=== PATIENT | male | born 1990 | race Caucasian/White ===

== ENCOUNTER → 2020-09-18 16:22 | Outpatient (CLI) | payer BC, SELFPAY | PROVIDERS: PCP Internal Medicine Adolescent Medicine; Visit Provider Internal Medicine Adolescent Medicine | DX: Z03.818 Encounter for observation for suspected exposure to other biological agents ruled out (principal); R05 Cough | CPT/HCPCS: U0003 ==

== ENCOUNTER 2022-04-05 12:41 | Emergency (ER) | payer BC, SELFPAY ==
[2022-04-05 12:50] VITALS: BP 139/87; PULSE 70; RESP 19; TEMP 36.7; O2SAT 97; BMI 26.0
[2022-04-05 13:07] LABS: Adenovirus,PCR Not Detected (NotDetected); Coronavirus 229E Not Detected (NotDetected); Coronavirus NL63 Not Detected (NotDetected); Coronavirus OC43 Not Detected (NotDetected); Coronovirus HKU1,PCR Not Detected (NotDetected); Human Metapneumovirus Not Detected (NotDetected); Rhinovirus/Enterovirus Not Detected (NotDetected)
[2022-04-05 13:08] LABS: Bordetella Pertussis Not Detected (NotDetected); Chlamydophila Pneumoniae, PCR Not Detected (NotDetected); Coronavirus 19, PCR Not Detected (NotDetected); Influenza A, PCR Not Detected (NotDetected); Influenza AH1, 2009 Not Detected (NotDetected); Influenza AH1, PCR Not Detected (NotDetected); Influenza AH3,PCR Not Detected (NotDetected); Influenza B, PCR Not Detected (NotDetected); Mycoplasma Pneumoniae, PCR Not Detected (NotDetected); Parainfluenza 1, PCR Not Detected (NotDetected); Parainfluenza 2, PCR Not Detected (NotDetected); Parainfluenza 4, PCR Not Detected (NotDetected); Respiratory Syncytial Virus Not Detected (NotDetected)
--- NOTE | 2022-04-05 13:08 | HMH.EDUTC ---
[facility] [place] Dis[place] Clinical Impression: Bronchitis Sinusitis Qualifiers: Sinusitis location: unspecified location Chronicity: unspecified Qualified Code(s): J32.9 - Chronic sinusitis, unspecified Disposition: Home, Self-Care Condition on Discharge: Good Instructions: Sinusitis, DI for Sinusitis, DI for Acute Bronchitis Additional Instructions: ? Start antibiotic today. Be sure to complete entire prescription even if feeling better ? Monitor temp. Tylenol every 4 hours as needed and / or ibuprofen every 6 hours as needed ( As long as your primary care physician has told you that it ok to take both. For fever/aches/pains ER if no less than 101 despite Tylenol or Motrin ? Humidifier/vaporizer or hot steamy shower ? Inhaler every 4-6 hours as needed like we discussed. If unsure how to use it, ask pharmacist to demonstrate how. Should help open airways and improve cough, wheezing, and shortness of breath *Start steroid tomorrow. Helps with inflammation therefore, cough and wheezing. Follow directions on the package. Reviewed side effects. Patient reports taking them before. Follow up IMMEDIATELY for new or worsening of symptoms OR no noticeable improvement over the next 48-72 hours. 911 immediately for any life threatening symptoms such as chest pain or difficulty breathing Prescriptions: Albuterol Sulfate [Proventil-HFA 90mcg/puff Inh] 1 - 2 puffs IH Q6HP PRN #1 each PRN Reason: Shortness Of Breath Transmission Status: Received by [facility] Brompheniramine/Pseudoephed/Dm [Bromfed Dm Cough Syrup] 10 ml PO Q4-6H PRN #200 ml PRN Reason: Cough Transmission Status: Received by [id number] methylPREDNISolone [Medrol 4mg tab] 4 mg PO DIRECTED #21 tab Transmission Status: Received by [id number] Azithromycin [Z-Calvin 250mg Tab] 250 mg PO DIRECTED #6 tab Transmission Status: Received by [id number] Referrals: Harry Bach MD [Primary Care Provider] - As needed Forms: Work/School Release Medical Decision Making - Cali Inquiry Pt receiving controlled substance: No Cali was queried for this patient: No Vital Signs: 04/05/22 12:50 04/05/22 13:36 Temperature 98.0 F 98.0 F Temperature Source Oral Pulse Rate 70 Pulse Rate [Right Brachial] 70 Respiratory Rate 19 19 Blood Pressure 139/87 Blood Pressure [Right Arm] 139/87 Blood Pressure Mean [Right Arm] 104 Blood Pressure Source [Right Arm] Automatic Cuff Blood Pressure Position [Right Arm] Sitting 02 Sat by Pulse Oximetry 97 Oxygen Delivery Method Room Air Orders (Tests/Meds): ED MEDICATIONS Discontinued Medications Generic Name Dose Route Start Last Admin Trade Name Freq PRN Reason Stop Dose Admin Ceftriaxone Sodium 1 gm 04/05/22 13:19 04/05/22 13:35 Ceftriaxone 1gm Vial IM 04/05/22 13:20 1 gm ONCE ONE Administration Lidocaine HCl 0 ml 04/05/22 13:19 04/05/22 13:35 Lidocaine 1% 5ml Pf Vial IM 04/05/22 13:20 2 ml ONCE ONE Administration Methylprednisolone Sodium Succinate 125 mg 04/05/22 13:19 04/05/22 13:35 Methylprednisolone Sod Succ 125mg Vial IM 04/05/22 13:20 125 mg ONCE ONE Administration ORDERS Category Date Time Status Full Resp Panel w/COVID ([facility]) Routine Lab 04/05/22 13:05 Received [facility] [place] HPI - General Stated complaint: cough, congestion, sinus drainage, chills Time Seen by Provider: 04/05/22 13:08 Mode of Arrival: Ambulatory Source of Information: Patient Limitations: No Limitations Description of Symptoms (Recalled from Triage Doc. by RN): PATIENT C/O SINUS CONGESTION, PRODUCTIVE COUGH, AND SOA X 3 DAYS HEENT Symptoms (Recalled from RN notes): Yes Resp Symptoms (Recalled from RN notes): Yes Skin Symptoms (Recalled from RN notes): No MS Symptoms (Recalled from RN notes): No Functional Status (Recalled from RN notes): WNL - History of Present Illness Provider Complaint: Patient states that he has been having sinus congestio
[2022-04-05 13:36] VITALS: BP 139/87; PULSE 70; RESP 19; TEMP 36.7; O2SAT 97
[2022-04-05 19:38] LABS: Parainfluenza 3, PCR Detected (NotDetected)
== END 2022-04-05 13:47 | disposition home or self-care (01) ==
PROVIDERS: Emergency Provider Nurse Practitioner; PCP Family Medicine
DX: J20.9 Acute bronchitis, unspecified (principal); J01.90 Acute sinusitis, unspecified
CPT/HCPCS: 87581; 87632; 87798; 96372; 99212; C9803; G0463; J0696; U0003; U0005

== ENCOUNTER 2022-05-07 11:10 | Emergency (ER) | payer BC, SELFPAY ==
[2022-05-07 11:40] VITALS: BP 140/78; PULSE 77; RESP 18; TEMP 36.8; O2SAT 97; BMI 27.9
--- NOTE | 2022-05-07 12:00 | HMH.EDUTC ---
[facility] [place] Clinical Impression: Strep pharyngitis Disposition: Home, Self-Care Condition on Discharge: Good Instructions: DI for Strep Throat Additional Instructions: Start antibiotics today be sure to take it as ordered with the full length of time although you should start feeling better in 24-48 hours. Change toothbrush and toothpaste 24-48 hours after starting antibiotics Tylenol or Motrin as needed for fever or pain Encourage fluids, water, Gatorade, Powerade, try cold fluids, popsicles, ice cream will make it feel better You are contagious for 24 hours. Avoid kissing anyone, no eating or drinking after anyone. You are contagious. Follow-up the ER for new or worsening symptoms or no noticeable improvement over the next 24-48 hours. Follow-up with PCP this week. Prescriptions: Azithromycin [Zithromax 250mg tab] 250 mg PO DIRECTED #6 tab Transmission Status: Pending to [facility] Referrals: Harry Bach MD [Primary Care Provider] - Time of Disposition: 12:04 Medical Decision Making - Cali Inquiry Pt receiving controlled substance: No Vital Signs: 05/07/22 11:40 Temperature 98.3 F Temperature Source Oral Pulse Rate [Right Brachial] 77 Respiratory Rate 18 Blood Pressure [Right Arm] 140/78 Blood Pressure Mean [Right Arm] 98 Blood Pressure Source [Right Arm] Automatic Cuff Blood Pressure Position [Right Arm] Sitting 02 Sat by Pulse Oximetry 97 Oxygen Delivery Method Room Air [facility] [place] - General Chief complaint: [facility] Stated complaint: sore throat Time Seen by Provider: 05/07/22 12:00 Mode of Arrival: Ambulatory Source of Information: Patient Limitations: No Limitations Description of Symptoms (Recalled from Triage Doc. by RN): PATIENT C/O SORE THROAT SINCE MONDAY HEENT Symptoms (Recalled from RN notes): Yes Resp Symptoms (Recalled from RN notes): No Skin Symptoms (Recalled from RN notes): No MS Symptoms (Recalled from RN notes): No Functional Status (Recalled from RN notes): WNL - History of Present Illness Provider Complaint: 32 yr old male presnets for sore throat for 3-4 days - Related Data Previous Rx's Medication Instructions Recorded Azithromycin [Zithromax 250mg 250 mg PO DIRECTED #6 tab 05/07/22 tab] Allergies Allergy/AdvReac Type Severity Reaction Status Date / Time Sulfa (Sulfonamide Allergy Verified 04/05/22 13:07 Antibiotics) - Worker's Comp Is this a Worker's Comp case?: No [facility] History - Hepatitis A Screen Attestation statement:: This patient has been screened for Hepatitis A risk factors. I have reviewed the patient's past medical history: Yes Medical History: Denies:: Diabetes Mellitus Type 1, Diabetes Mellitus Type 2 Laterality Cases: Right: Carotid Endarterectomy - Social History Smoking Status: Never smoker Alcohol Intake: never Occupational Status: other Family Hx:: No significant family history ROS Obtained: Yes Systems reviewed as appropriate & no additional complaints - Constitutional Constitutional: Reports system reviewed and no additional complaints, except as docu, Denies fever(s) - Eyes Eyes: Reports system reviewed and no additional complaints, except as docu, Denies change in vision - ENT Ears, Nose, Mouth, and Throat: Reports system reviewed and no additional complaints, except as docu, Reports sore throat - Cardiovascular Cardiovascular: Reports system reviewed and no additional complaints, except as docu, Denies chest pain - Respiratory Respiratory: Reports system reviewed and no additional complaints, except as docu, Denies change in phlegm color - Gastrointestinal Gastrointestingal: Reports: system reviewed and no additional complaints, except as docu. Denies: bloating - Musculoskeletal Musculoskeletal: Reports system reviewed and no additional complaints, except as docu, Denies joint pain - Integumentary/Breasts Skin/Breast: Reports system r
[2022-05-07 12:03] LABS: UTC Strep Screen (Rapid) Positive (Negative)
[2022-05-07 12:08] VITALS: BP 140/78; PULSE 77; RESP 18; TEMP 36.8; O2SAT 97
== END 2022-05-07 12:10 | disposition home or self-care (01) ==
PROVIDERS: Emergency Provider Nurse Practitioner Family; PCP Family Medicine
DX: J02.0 Streptococcal pharyngitis (principal)
CPT/HCPCS: 87880; 99212; G0463

== ENCOUNTER 2022-05-08 16:18 | Emergency (ER) | payer BC, SELFPAY ==
[2022-05-08 16:20] VITALS: BP 139/74; PULSE 94; RESP 19; TEMP 37.2; O2SAT 96; BMI 27.8
--- NOTE | 2022-05-08 16:29 | HMH.EDUTC ---
[facility] [place] Clinical Impression: Strep pharyngitis Disposition: Home, Self-Care Condition on Discharge: Good Instructions: Strep Throat, DI for Strep Throat Additional Instructions: *Monitor Temp, Over the counter Motrin or Tylenol as directed/as needed Tylenol every 4 hours and Motrin every 6 hours (as long as your family doctor has told you that you can take it) for fever or pain. and straight to ER if unable to lower temp less than 101.0 after medication given *Warm salt water gargles may help to soothe the throat *Throat Lozenges *Warm fluids like tea with honey may help to soothe the throat *Sleep elevated *Humidifier/Vaporizer *change toothbrush and toothpaste 24-48 hours after starting to take antibiotics so you do not reinfect yourself Monitor Temp. Tylenol and/or Ibuprofen as needed. ER if fever is no less than 101 despite alternating Tylenol and Ibuprofen * Encourage fluids, water, Gatorade, powerade, pedialyte if infant/toddler/or child *Cold fluids, popsicles and ice cream may feel good on his throat *Over the counter chloreseptic spray may help with sore throat Follow up IMMEDIATELY for new or worsening symptoms or no Noticeable improvement over the next 48-72 hours. 911 for difficulty breathing or swallowing Referrals: Harry Bach MD [Primary Care Provider] - As needed Time of Disposition: 16:54 Medical Decision Making - Cali Inquiry Pt receiving controlled substance: No Cali was queried for this patient: No Vital Signs: 05/08/22 16:20 05/08/22 16:38 Temperature 98.9 F 98.9 F Temperature Source Oral Pulse Rate 94 H Pulse Rate [Left Brachial] 94 H Respiratory Rate 19 19 Blood Pressure 139/74 Blood Pressure [Left Arm] 139/74 Blood Pressure Mean [Left Arm] 95 Blood Pressure Source [Left Arm] Automatic Cuff Blood Pressure Position [Left Arm] Sitting 02 Sat by Pulse Oximetry 96 Oxygen Delivery Method Room Air Orders (Tests/Meds): ED MEDICATIONS Discontinued Medications Generic Name Dose Route Start Last Admin Trade Name Freq PRN Reason Stop Dose Admin Methylprednisolone Sodium Succinate 125 mg 05/08/22 16:30 05/08/22 16:35 Methylprednisolone Sod Succ 125mg Vial IM 07/24/22 16:31 125 mg ONCE ONE Administration Penicillin G Benzathine 1,200,000 unit 05/08/22 16:30 05/08/22 16:35 Penicillin G Benzathine 1,200,000 Units/2ml Syringe IM 05/08/22 16:31 1,200,000 unit ONCE ONE Administration Medical Decision Narrative: Patient states that he has started zpack but his throat is feeling worse Patient states that he has taken PCN and amoxicillin in the past without complications or reactions so will give Bilcillin La and SoluMedrol and have patient continue zpack [facility] [place] - General Stated complaint: Sore throat Time Seen by Provider: 05/08/22 16:29 Mode of Arrival: Ambulatory Source of Information: Patient Limitations: No Limitations Description of Symptoms (Recalled from Triage Doc. by RN): PATIENT C/O SORE THROAT. HE WAS DIAGNOSED WITH STREP YESTERDAY AND WAS GIVEN AZITHROMYCIN, BUT STATES SORE THROAT IS WORSE TODAY HEENT Symptoms (Recalled from RN notes): Yes Resp Symptoms (Recalled from RN notes): No Skin Symptoms (Recalled from RN notes): No MS Symptoms (Recalled from RN notes): No Functional Status (Recalled from RN notes): WNL - History of Present Illness Provider Complaint: Patient states his girlfriend had COVID a week or so ago and he felt achy last week and didnt feel well and he assumed that he may have had COVID States that he was seen yesterday and dx with strep throat but today his throat was feeling worse and he could hardly eat or drink so he came back in to see if there was something he could get to help him - Related Data Previous Rx's Medication Instructions Recorded Azithromycin [Zithromax 250mg 250 mg PO DIRECTED #6 tab 05/07/22 tab] Allergies Allergy/AdvReac Type Severity Reaction Statu
[2022-05-08 16:38] VITALS: BP 139/74; PULSE 94; RESP 19; TEMP 37.2; O2SAT 96
== END 2022-05-08 16:55 | disposition home or self-care (01) ==
PROVIDERS: Emergency Provider Nurse Practitioner; PCP Family Medicine
DX: J02.0 Streptococcal pharyngitis (principal)
CPT/HCPCS: 96372; 99212; G0463; J0561

== ENCOUNTER 2023-06-27 20:54 | Emergency (ER) | payer BC, SELFPAY ==
[2023-06-27 21:01] VITALS: BP 141/87; PULSE 60; RESP 16; TEMP 36.4; O2SAT 100; BMI 28.8
--- NOTE | 2023-06-27 21:07 | PC.NURSE ---
rounded on pt, no needs at this time.
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
[2023-06-27 22:43] VITALS: BP 131/70; PULSE 98; RESP 16; TEMP 36.9; O2SAT 98
== END 2023-06-27 22:46 | disposition home or self-care (01) ==
PROVIDERS: Emergency Provider Emergency Medicine; PCP Family Medicine
DX: S62.630A Displaced fracture of distal phalanx of right index finger, initial encounter for closed fracture (principal); W23.2XXA Caught, crushed, jammed or pinched between a moving and stationary object, initial encounter
CPT/HCPCS: 73140; 99283